=== PATIENT | female | born 1940 | race Caucasian/White ===

== ENCOUNTER 2021-05-25 22:16 | Emergency (ER) | payer OTHER, MEDICAID ==
[~2021-05-25] VITALS: Ht 152.4 cm; Wt 71.7 kg
[2021-05-25] MEDS ORDERED: SOTROVIMAB 500 MG in NACL 0.9% 50 ML IV ONE (22:20)
[2021-05-25 22:22] VITALS: BP 147/55
[2021-05-25] MEDS ORDERED: SOTROVIMAB 500 MG/8 ML VIAL IV ONE (22:23)
[2021-05-25] MEDS ORDERED: DEXAMETHASONE 4 MG/ML VIAL IVP ONE (22:45)
[2021-05-25 22:48] LABS: BASOPHILS % (AUTO) 0.9 % (0.0-2.0); EOSINOPHILS # (AUTO) 0.2 K/uL (0-0.4); HEMOGLOBIN 11.1 g/dL (12.0-16.0); LYMPHOCYTES # (AUTO) 1.3 K/uL (2.5-16.5); LYMPHOCYTES % (AUTO) 27.5 % (20.5-51.1); MEAN CORPUSCULAR HEMOGLOBIN 26 pg (27-31); MEAN CORPUSCULAR HGB CONC 34 g/dL (33-37); MEAN CORPUSCULAR VOLUME 76.1 fL (80-94); MONOCYTES # (AUTO) 0.9 K/uL (0.8-1.0); MONOCYTES % (AUTO) 18.8 % (1.7-9.3); NEUTROPHILS # (AUTO) 2.3 K/uL (1.8-7.7); NEUTROPHILS % (AUTO) 48.8 % (42.2-75.2); PLATELET COUNT (AUTO) 237 K/uL (140-450); RED BLOOD CELL COUNT(AUTO) 4.34 MIL/uL (4.20-5.40); RED CELL DISTRIBUTION WIDTH 14.7 % (11.6-13.7); WHITE BLOOD COUNT (AUTO) 4.6 K/uL (4.8-10.8)
--- NOTE | 2021-05-25 22:55 | NUR ---
80 YO F BIB DAUGHTER WITH C/C OF FEVER, COUGH, AND MALAISE X3DAYS. PT'S FRIEND/FAM MEMBER TESTED POSITIVE FOR COVID PT THEN TESTED SELF YESTERDAY AND CAME BACK POSITIVE FOR COVID. DENIES SOB AND CHEST PAIN. HX:HTN, HDL
[2021-05-25 23:00] VITALS: BP 155/57
[2021-05-25 23:06] LABS: ANION GAP 10.7 (8-16); ASPARTATE AMINOTRANSFERASE 19 U/L (15-37); CARBON DIOXIDE 28.5 mmol/L (21-32); CHLORIDE 100 mmol/L (98-107); CREATININE 0.7 mg/dL (0.6-1.3); GLUCOSE 96 mg/dL (74-106); POTASSIUM 4.2 mmol/L (3.5-5.1); SODIUM SERUM 135 mmol/L (136-145); TOTAL BILIRUBIN 0.3 mg/dL (0.0-1.0); UREA NITROGEN, BLOOD 10 mg/dL (7-18)
--- NOTE | 2021-05-25 23:30 | NUR ---
PT IS AWAKE AND ALERT SITTING UP IN BED WITH DAUGHTER AT BEDSIDE. PT DENIES PAIN AND DISCOMFORT. PT STATES SHE FEELS FINE. ALL NEEDS MET AT THIS TIME. VSS. PT IN STABLE CONDITION. BED LOCKED IN LOWEST POSTITION, SIDE RAILS X2 FOR SAFETY.
--- NOTE | 2021-05-25 23:57 | NUR ---
PT CLEARED FOR DISCHARGE BY DR. EDMOND. ALL DISCHARGE INSTRUCTIONS. PROVIDED BY DR. EDMOND.
== END 2021-05-25 23:57 | disposition home or self-care (01) ==
LOC: MED 22:16
DX: U07.1 COVID-19 (principal); I10 Essential (primary) hypertension; E78.5 Hyperlipidemia, unspecified
CPT/HCPCS: 36415; 71045; 80053; 83605; 85025; 87040; 87426; 96365; 96375; 99284; J1100; Q0092